=== PATIENT | female | born 1995 | race Hispanic/Latino ===

== ENCOUNTER 2020-01-19 19:34 | Emergency (ER) | payer OTHER ==
--- OUTSIDE RECORDS SUMMARY | 2020-01-19 19:36 | XMS REPORT | Summary of Care ---
:1995 Author Organization [facility] - Health Address [address] [place] [address] Care Team Providers Name Role Phone Pcp, Patient Does Not Have A Primary Care Provider Encounter Details Date Type Department Care Team Description 12/27/2019 Orders Only [facility] Doctor Unassigned, No [address] [facility] [place] [address] [address] [place] [address] Allergies Active Allergy Reactions Severity Noted Date Comments Sulfa (Sulfonamide Antibiotics) Unknown - See comments 01/20/2019 childhood documented as of this encounter (statuses as of 12/27/2019) Medications Medication Sig Dispensed Refills Start Date End Date Status ferrous sulfate 325 Take 1 Tab by 60 Tab 2 04/08/2012 Active mg (65 mg iron) mouth 2 (two) tablet times daily. ialicvzvt-rgyr-eyhoud Take 2 tablets by 0 Active no.183 mouth daily. (SINTRALYNE-PM) 5-20-460 mg Cap Nitrofurantoin&Nit. Take 1 capsule by 14 capsule 0 06/23/2016 Active Macrocryst (MACROBID) mouth 2 (two) 100 mg capsule times daily. ondansetron (ZOFRAN, Take 1 tablet by 12 tablet 0 06/23/2016 Active HYDROCHLORIDE,) 4 mouth every 8 mg tablet (eight) hours as needed for Nausea and Vomiting (N/V). ondansetron (ZOFRAN, Take 1 tablet by 12 tablet 0 06/23/2016 Active HYDROCHLORIDE,) 4 mouth every 8 mg tablet (eight) hours as needed for Nausea and Vomiting (N/V). 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 documented as of this encounter Last Filed Vital Signs Not on filedocumented in this encounter Plan of Treatment Date Type Specialty Care Team Description 12/27/2019 Nurse Visit Pediatric Genetics RayRaciel MD [address] [facility] [address] [place] [address] Arrived Nurse, Yenni Ruvalcaba Genetics Health Maintenance Due Date Last Done Comments VARICELLA VACCINES (1 of 2 - 1996 2-dose childhood series) DTaP,Tdap,and Td Vaccines (1 - 2006 Tdap) HPV VACCINES (1 - Female 2-dose 2006 series) CHLAMYDIA SCREENING 05/24/2013 05/24/2012 PAP SMEAR 2016 INFLUENZA VACCINE (#1) 2019 PNEUMOCOCCAL 0-64 YEARS COMBINED Aged Out No longer eligible based on SERIES patient's age to complete this topic documented as of this encounter Procedures Procedure Name Priority Date/Time Associated Diagnosis Comments ASSIGNMENT OF BENEFITS Routine 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
--- OUTSIDE RECORDS SUMMARY | 2020-01-19 19:36 | XMS REPORT | Summary of Care ---
:1995 Author Organization [facility] - Health Address [address] [place] [address] Care Team Providers Name Role Phone Pcp, Patient Does Not Have A Primary Care Provider Reason for Visit Reason Comments NURSE VISIT bloodwork Encounter Details Date Type Department Care Team Description 12/27/2019 Nurse Visit [facility] Raciel Crandall MD [address] [facility] [address] [place] [address] Family history of genetic disease (Primary Dx); Specialties Yenni Garland Genetics History of seizures [address] [place] [address] Allergies Active Allergy Reactions Severity Noted Date Comments Sulfa (Sulfonamide Antibiotics) Unknown - See comments 01/20/2019 childhood documented as of this encounter (statuses as of 12/27/2019) Medications Medication Sig Dispensed Refills Start Date End Date Status ferrous sulfate 325 Take 1 Tab by 60 Tab 2 04/08/2012 Active mg (65 mg iron) mouth 2 (two) tablet times daily. 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 See clinical note under her on date12/27/2019 from Vania Agrawal.Electronically signed by Vania Agrawal at 4:31 PM Kayden Rodriguez LVN - 12/27/2019 3:30 PM CST24 year old female has been identified by and name. The patient has signed the informed consentto have blood drawn. Venipuncture performed by clean technique on the left anticubitus. Slight pressure and a band aid were applied to the venipuncture site. The patient tolerated the procedure well. The collected blood sample(s) were properly labeled in the exam room in front of the patient/family and sent to the laboratory. Specimen collected and sent to [facility] Financial consent and lab requisition signed by patient's parent. Copy of insurance information sent. Specimen packaged and sent via [employer]. [employer] Tracking Number [id number] signed by Kayden Tidwell LVN at 12/27/2019 3:42 PM CSTdocumented in this encounter Plan of Treatment Name Type Priority Associated Diagnoses Order Schedule Misc. Sendout- Familial LAB Routine Family history of genetic Ordered: mutation analysis - Send disease to [facility] History of seizures Health Maintenance Due Date Last Done Comments [...] this topic documented as of this encounter Results Not on filedocumented in this encounter Visit Diagnoses Diagnosis Family history of genetic disease - Primary Family history of other condition History of seizures Personal history of other disorders of nervous system and sense organs documented in this encounter
--- OUTSIDE RECORDS SUMMARY | 2020-01-19 19:36 | XMS REPORT | Summary of Care ---
:1995 Author Organization [facility] - Health Address [address] [place] [address] Care Team Providers Name Role Phone Pcp, Patient Does Not Have A Primary Care Provider Reason for Visit Reason Comments NURSE VISIT bloodwork Encounter Details Date Type Department Care Team Description 12/27/2019 Nurse Visit [facility] Raciel Crandall MD [address] [facility] [address] [place] [address] Family history of genetic disease (Primary Dx); Specialties Yenni Garland Genetics History of seizures [address] [place] [address] Allergies Active Allergy Reactions Severity Noted Date Comments Sulfa (Sulfonamide Antibiotics) Unknown - See comments 01/20/2019 childhood documented as of this encounter (statuses as of 12/27/2019) Medications Medication Sig Dispensed Refills Start Date End Date Status ferrous sulfate 325 Take 1 Tab by 60 Tab 2 04/08/2012 Active mg (65 mg iron) mouth 2 (two) tablet times daily. 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 Specimen collected and sent to [facility] Financial consent and lab requisition signed by patient's parent. Copy of insurance information sent. Specimen packaged and sent via [employer]. [employer] Tracking Number [id number] signed by Kayden Tidwell LVN at 12/27/2019 3:42 PM CSTdocumented in this encounter Plan of Treatment Name Type Priority Associated Diagnoses Order Schedule Misc. Sendout- Familial LAB Routine Family history of genetic Ordered: mutation analysis - Send disease to [facility] History of seizures Health Maintenance Due Date [...]
--- OUTSIDE RECORDS SUMMARY | 2020-01-19 19:36 | XMS REPORT | Summary of Care ---
:1995 Author Organization [facility] Address [address] [place] [address] Care Team Providers Name Role Phone Pcp, Patient Does Not Have A Primary Care Provider Reason for Visit Reason Comments Lab Results [facility] Encounter Details Date Type Department Care Team Description 01/12/2020 Telephone [facility] Vania Hwang Lab Results ([facility]) Specialties [address] [place] [address] [facility] [address] [place] [address] Allergies Active Allergy Reactions Severity Noted Date Comments Sulfa (Sulfonamide Antibiotics) Unknown - See comments 01/20/2019 childhood documented as of this encounter (statuses as of 01/12/2020) Medications Medication Sig Dispensed Refills Start Date End Date Status ferrous sulfate 325 Take 1 Tab by 60 Tab 2 04/08/2012 Active mg (65 mg iron) mouth 2 (two) tablet times daily. 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 Migraine 07/07/2011 Seizure 07/07/2011 documented as of this encounter (statuses as of 01/12/2020) Social History Tobacco Use Types Packs/Day Years [...] filedocumented in this encounter Plan of Treatment Health Maintenance Due Date Last Done Comments [...] in this encounter Insurance Payer Benefit Plan / Subscriber ID Effective Dates Phone Address Type Group [facility] STAR xxxxxxxxx 2018-Present Medicaid COMM PLAN - PLUS MANAGED MEDICAID [facility] TOTAL VISION [facility] TOTAL [id number] 2016-Presen Vision VISION t documented as of this encounter
--- OUTSIDE RECORDS SUMMARY | 2020-01-19 19:36 | XMS REPORT ---
:1995 Author [facility] Address [address] [place] [address] [address]. [address] [place] [address] Care Team Providers Name Role Phone Unavailable Unavailable Unavailable Payers Payer Name Policy Type Policy Number Effective Date Expiration Date Problems This patient has no known problems. Allergies, Adverse Reactions, Alerts Allergy Name Allergy Status Severity Reaction(s) Onset Inactive Treating Comments Type Date Date Clinician sulfamethoxazol DA Active U 2017-0 e 06-26 00:00: 00 trimethoprim DA Active U 06-26 00:00: 00 Medications This patient has no known medications. Results Test Description Test Time Test Comments Text Results Atomic Results Result Comments [facility] 2018-08-18 RUN DATE: THIRD 17:55:00 08/19/18 [facility] PAGE 1 RUN TIME: 0854 TRIMESTER Specimen Inquiry RUN USER : INTERFACE PATIENT: VINCENT HODGSON LOC: DONNIE U #: [id number] [facility]: Gosia Onofre MD : 95 BED: A DIS: 08/16/18 STATUS: DIS IN TLOC: SPEC #: [id number] RECD: 08/13/18 STATUS: AMBER REMagdaleno # : [id number] MAXIMO: 08/13/18- SUBM DR: Gosia Onofre MD ENTERED: 08/16/18-804 SP TYPE: PLACIII OTHR DR: ORDERED: LEVEL V SURGICA CODES: [id number] - PLACENTA, NOS PROCEDURES: LEVEL V SURGICA (Incomplete) TISSUES: PLACENTA, NOS - PLACENTA CLINICAL HISTORY 22 year old, 39 weeks, G2T1L1, section, oligohydramnios (kr) FINAL DIAGNOSIS Placenta, section: - placenta with third trimester morphology (388 gms), mean placental weight at 39 weeks - 519 gms (placenta is small for dates, less than the 10th percentile for weight at 39 weeks) - delayed villous maturation - focal villous aggregation with acute inflammation, suggestive of early infarct - trivascular umbilical cord and membranes - free of inflammation Tissue code 1 CPT code(s): 76793 pkg/wpd @ 1749 GROSS DESCRIPTION The specimen is received in formalin, labeled with the patient's name and designated "placenta". The specimen consists of a 388 gm, 15 cm in greatest dimension discoid placenta having a 23 cm length and 1.6 cm in diameter eccentrically located trivascular umbilical cord, fritz, thickened membranes, variegated fritz-pink and purple surface with focal subchorionic fibrin deposition and an intact maternal aspect composed of well-formed cotyledons. The placenta parenchyma is pink-red and spongy with focal areas of peripheral fibrosis and calcifications. [place] sections are submitted as A - D.al 08/17/18 @ 0812 CONTINUED ON NEXT PAGE RUN DATE: 08/19/18 [facility] PAGE 2 RUN TIME: 853 Specimen Inquiry RUN USER: INTERFACE SPEC #: [id number] PATIENT: VINCENT HODGSON #[id number] (Continued) MICROSCOPIC DESCRIPTION The placenta is composed of small vascular villi which are larger and more cellular than expected for the given gestational age. Focal villous aggregation is present, associated with acute inflammation and mild acute intervillositis. The trivascular umbilical cord and membranes are free of inflammation. esla/wpjavon 08/18/18 @ 1750 Signed Corina Nielson 08/18/18 1755 END OF REPORT
[2020-01-19] MEDS ORDERED: HYDROCODONE/APAP 5/325 MG TAB ONE (20:07)
--- NOTE | 2020-01-19 20:39 | RAD REPORT ---
EXAM DESCRIPTION: RAD - Hand Right 3 View - 01/19/2020 8:20 pm CLINICAL HISTORY: PAIN COMPARISON: No comparisons FINDINGS: No fracture or dislocation is seen.
--- NOTE | 2020-01-19 20:42 | ER ---
Nurse's Notes [facility] Name: Jess Weinstein Age: 24 yrs Sex: Female : 1995 Arrival Date: 01/19/2020 Time: 19:36 Bed 15 Private MD: Diagnosis: Pain in right hand;Contusion of hand Presentation: 01/19 19:44 Presenting complaint: Patient states: "I smashed my hand between some wood"; States lp1 seat of chair fell down onto right hand; Pain to right 3rd, 4th, and 5th fingers; R wrist ROM intact. Transition of care: patient was not received from another setting of care. Onset of symptoms was January 19, 2020. Risk Assessment: Do you want to hurt yourself or someone else? Patient reports no desire to harm self or others. Initial Sepsis Screen: Does the patient meet any 2 criteria? No. Patient's initial sepsis screen is negative. Does the patient have a suspected source of infection? No. Patient's initial sepsis screen is negative. Care prior to arrival: None. 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 - Coronavirus screen:: The patient has NOT traveled to [place] in the past 14 days. The patient has NOT had contact with known/suspected case of Coronavirus?. - Social history:: Smoking status: Patient denies any tobacco usage or history of. - Ebola Screening: : No symptoms or risks identified at this time. Screenin:47 Abuse screen: Denies threats or abuse. Denies injuries from another. Nutritional lp1 screening: No deficits noted. Tuberculosis screening: No symptoms or risk factors identified. Fall Risk None identified. Assessment: 20:28 General: Appears in no apparent distress. Behavior is calm, cooperative. Pain: rv Complains of pain in right hand. Neuro: Level of Consciousness is awake, alert, obeys commands, Oriented to person, place, time, situation. Cardiovascular: Patient's skin is warm and dry. Respiratory: Airway is patent. Derm: Wound noted right hand Wound is abrsions. Musculoskeletal: Swelling present in right hand. 20:53 Reassessment: KARLA WRAP APPLIED TO RIGHT HAND. rv Vital Signs: 19:45 BP 130 / 61; Pulse 99; Resp 18; Temp 98.2(TE); Pulse Ox 99% on R/A; Weight 81.65 kg lp1 (R); Height 5 ft. 0 in. (152.40 cm); Pain 0/10; 20:53 BP 126 / 60; Pulse 91; Resp 16; Pulse Ox 99% on R/A; rv 20:55 Pain 3/10; rv 19:45 Body Mass Index 35.15 (81.65 kg, 152.40 cm) lp1 ED Course: 19:36 Patient arrived in ED. cl3 19:44 Jovany Samuel MD is Attending Physician. ps1 19:45 Triage completed. lp1 19:45 Arm band placed on left wrist. lp1 19:47 Patient has correct armband on for positive identification. lp1 20:22 Hand Right 3 View XRAY In Process Unspecified. EDMS 20:26 Nilay Mcgee RN is Primary Nurse. rv 20:53 No provider procedures requiring assistance completed. Patient did not have IV access rv during this emergency room visit. Administered Medications: 20:06 Drug: Anita 5 mg-325 mg 1 tabs Route: PO; 20:55 Follow up: Pain 3/10 Adult; Response: No adverse reaction; Marked relief of symptoms; rv Pain is decreased; RASS: Alert and Calm (0) Outcome: 20:42 Discharge ordered by . ps1 20:54 Discharged to home ambulatory. rv 20:54 Condition: good 20:54 Discharge instructions given to patient, Instructed on discharge instructions, follow up and referral plans. medication usage, Demonstrated understanding of instructions, follow-up care, medications, Prescriptions given X 2. 20:55 Patient left the ED. rv Signatures: Dispatcher [employer] EDMS Em Berry RN RN lp1 Lenny Bull Jovany Samuel MD MD ps1 Nilay Mcgee RN RN rv Jonny Baltazar cl3
--- NOTE | 2020-01-19 20:43 | EDPHYS ---
Physician Documentation [facility] Name: Jess Weinstein Age: 24 yrs Sex: Female : 1995 Arrival Date: 01/19/2020 Time: 19:36 Bed 15 Private MD: ED Physician Jovany Samuel HPI: 01/19 19:59 This 24 yrs old Female presents to ER via Ambulatory with complaints of Hand ps1 Injury. 19:59 Patient is left hand dominant, presenting with crush injury to right hand. Patient was ps1 putting away toys in a storage compartment and had a wooden divider slam down on the fingers. Pain rated as severe with associated swelling. Decreased hand movement of 2nd through 4th digits. . 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 - Coronavirus screen:: The patient has NOT traveled to [place] in the past 14 days. The patient has NOT had contact with known/suspected case of Coronavirus?. - Social history:: Smoking status: Patient denies any tobacco usage or history of. - Ebola Screening: : No symptoms or risks identified at this time. ROS: 19:59 Constitutional: Negative for fever, chills, and weight loss, Eyes: Negative for injury, ps1 pain, redness, and discharge, Cardiovascular: Negative for chest pain, palpitations, and edema, Respiratory: Negative for shortness of breath, cough, wheezing, and pleuritic chest pain, Abdomen/GI: Negative for abdominal pain, nausea, vomiting, diarrhea, and constipation, Skin: Negative for injury, rash, and discoloration, Neuro: Negative for headache, weakness, numbness, tingling, and seizure. 19:59 MS/extremity: Positive for injury or acute deformity, pain, swelling, of the dorsal aspect of middle phalanx of right index finger, dorsal aspect of middle phalanx of right middle finger and dorsal aspect of middle phalanx of right ring finger. Exam: 19:59 Constitutional: This is a well developed, well nourished patient who is awake, alert, ps1 and in no acute distress. Head/Face: Normocephalic, atraumatic. Eyes: Pupils equal round and reactive to light, extra-ocular motions intact. Lids and lashes normal. Conjunctiva and sclera are non-icteric and not injected. Chest/axilla: Normal chest wall appearance and motion. Nontender with no deformity. No lesions are appreciated. Cardiovascular: Regular rate and rhythm. No gallops, murmurs, or rubs. Normal PMI, no JVD. No pulse deficits. Respiratory: Lungs have equal breath sounds bilaterally, clear to auscultation and percussion. No rales, rhonchi or wheezes noted. No increased work of breathing, no retractions or nasal flaring. Abdomen/GI: Soft, non-tender, with normal bowel sounds. No distension or tympany. No guarding or rebound. No evidence of tenderness throughout. Skin: Warm, dry with normal turgor. Normal color with no rashes, no lesions, and no evidence of cellulitis. Neuro: Awake and alert, GCS 15, oriented to person, place, time, and situation. Cranial nerves II-XII grossly intact. Sensory grossly intact. 19:59 Musculoskeletal/extremity: Extremities: grossly normal except: noted in the dorsal aspect of middle phalanx of right ring finger and dorsal aspect of middle phalanx of right middle finger and dorsal aspect of middle phalanx of right index finger: contusion, pain, tenderness. Vital Signs: 19:45 BP 130 / 61; Pulse 99; Resp 18; Temp 98.2(TE); Pulse Ox 99% on R/A; Weight 81.65 kg lp1 (R); Height 5 ft. 0 in. (152.40 cm); Pain 0/10; 20:53 BP 126 / 60; Pulse 91; Resp 16; Pulse Ox 99% on R/A; rv 20:55 Pain 3/10; rv 19:45 Body Mass Index 35.15 (81.65 kg, 152.40 cm) lp1 MDM: 20:07 Patient medically screened. ps1 20:42 Differential diagnosis: closed fracture, contusion, abrasion. Data reviewed: vital ps1 signs, nurses notes, radiologic studies, and as a result, I will discharge patient. Counseling: I had a detailed discussion with the patient and/or guardian regarding: the historical points, exam findings, and any diagnostic results supporting the discharge/admit diagnosis, radiology results, to return to the emergency department if symptoms worsen or persist or if there are any questions or concerns that arise at home. ED course: 24 y/o F presenting with right hand pain. XR negative for fx. Pain control given in ED. Home with anaprox an medrol. F/U with Ortho for reassessment. . 01/19 19:59 Order name: Hand Right 3 View XRAY ps1 Administered Medications: 20:06 Drug: Offerman 5 mg-325 mg 1 tabs Route: PO; 20:55 Follow up: Pain 02/06 Adult; Response: No adverse reaction; Marked relief of symptoms; rv Pain is decreased; RASS: Alert and Calm (0) Disposition: 01/19/20 20:42 Discharged to Home. Impression: Pain in right hand, Contusion of hand. - Condition is Stable. - Discharge Instructions: Musculoskeletal Pain. - Prescriptions for Anaprox DS 550 mg Oral Tablet - take 1 tablet by ORAL route every 12 hours As needed; 20 tablet. Medrol (Long) 4 mg Oral Tablets, Dose Pack - take 1 tablet by ORAL route as directed - follow package instructions; 1 packet. - Medication Reconciliation Form, Thank You Letter, Antibiotic Education, Prescription Opioid Use form. - Follow up: Private Physician; When: As needed; Reason: Further diagnostic work-up, Recheck today's complaints, Continuance of care, Re-evaluation by your physician. Follow up: Emergency Department; When: As needed; Reason: Worsening of condition. - Problem is new. - Symptoms have improved. Signatures: Dispatcher [employer] EDMS Em Berry RN RN lp1 Lenny Bull Jovany Samuel MD MD ps1 Nilay Mcgee RN RN rv Corrections: (The following items were deleted from the chart) 20:55 20:42 01/19/2020 20:42 Discharged to Home. Impression: Pain in right hand; Contusion of rv hand. Condition is Stable. Forms are Medication Reconciliation Form, Thank You Letter, Antibiotic Education, Prescription Opioid Use. Follow up: Private Physician; When: As needed; Reason: Further diagnostic work-up, Recheck today's complaints, Continuance of care, Re-evaluation by your physician. Follow up: Emergency Department; When: As needed; Reason: Worsening of condition. Problem is new. Symptoms have improved. ps1
[2020-01-19 22:58] VITALS: TEMP 98.2; O2SAT 99
[2020-01-19 23:15] VITALS: BP 126/60
== END 2020-01-19 20:55 | disposition home or self-care (01) ==
LOC: ER 19:34
DX: S60.221A Contusion of right hand, initial encounter (principal); W22.8XXA Striking against or struck by other objects, initial encounter; Y93.89 Activity, other specified; Y92.9 Unspecified place or not applicable; Z88.2 Allergy status to sulfonamides
CPT/HCPCS: 99283

== ENCOUNTER 2020-07-10 23:22 | Emergency (ER) | payer OTHER ==
--- OUTSIDE RECORDS SUMMARY | 2020-07-10 23:25 | XMS REPORT | Continuity of Care Document ---
:1995 Author Organization [facility] t Address [address] [place] [address] Care Team Providers Name Role Phone Tanja Attending Clinician Unavailable Nurse, Peg Kapadia Attending Clinician Unavailable Payers Payer Name Policy Type Policy Number Effective Date Expiration Date S ource Problems This patient has no known problems. Allergies, Adverse Reactions, Alerts Allergy Allergy Status Severity Reaction(s) Onset Inactive Treating Comm ents Source Name Type Date Date Clinician sulfamet DA Active U 2017-0 [facility] trimetho DA Active U 2017-0 [facility] prim 06-26 [facility] Medications This patient has no known medications. Procedures This patient has no known procedures. Encounters Start End Encounter Admission Attending Care Care Encounter Source Date/Time Date/Time Type Type Clinicians Facility Department ID 2020-01-12 2020-01-12 Telephone GATO Agrawal [id number] 00:00:00 00:00:00 [facility] [id number] [place] [id number] [place] [id number] 2019-12-27 2019-12-27 Nurse NurseYenni [id number] 15:04:30 16:32:19 Visit Pedi [facility] [id number] [facility] [id number] [place] [id number] Results Test Description Test Time Test Comments Results Result [facility] e Comments [facility] 2018-08-18 TRIMESTER 17:55:00 --------RUN DATE: 08/19/18 [facility] PAGE 1 RUN TIME: 08 Specimen Inquiry RUN USER: INTERFACE --------PATIENT: VINCENT WEINSTEIN LOC: DONNIE U #: [id number] AGE/SX: 22/F ROOM: [facility] RE08/13/18REG DR: Gosia Onofre MD : 95 BED: A DIS: 08/16/18 STATUS: DIS IN TLOC: -------- SPEC #: [id number] RECD: 08/13/18-804 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 Rolled Seat Trimmer sections are submitted as A - D.reza/leeann 08/17/18 @ 0815 CONTINUED ON NEXT PAGE --------RUN DATE: 08/19/18 [facility] PAGE 2 RUN TIME: 853 Specimen Inquiry RUN USER: INTERFACE --------SPEC #: [id number] PATIENT: VINCENT WEINSTEIN #[id number] (Continued) MICROSCOPIC DESCRIPTION The placenta is composed of small vascular villi which are larger and more cellular than expected for the given gestational age. Focal villous aggregation is present, associated with acute inflammation and mild acute intervillositis. The trivascular umbilical cord and membranes are free of inflammation. elsa/mejia 08/18/18 @ 1750 Signed Corina Nielson 08/18/18 1755 -------- END OF REPORT
[2020-07-11] MEDS ORDERED: ACETAMINOPHEN 500 MG TAB ONE (00:14)
[2020-07-11] MEDS ORDERED: IBUPROFEN 400 MG TAB ONE (00:14)
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
[2020-07-11 00:47] VITALS: BP 121/72; TEMP 98.9; O2SAT 100
[2020-07-11 02:43] LABS: Urine Blood TRACE (NEG); Urine Glucose NEGATIVE (NEG); Urine Protein 1+ (NEG); Urine Specific Gravity >1.030 (1.005-1.030)
--- NOTE | 2020-07-11 07:34 | RAD REPORT ---
EXAM DESCRIPTION: RAD - Humerus Left - 07/11/2020 12:17 am CLINICAL HISTORY: Trauma, left arm pain COMPARISON: None. FINDINGS: No fracture is identified. There is no dislocation or periosteal reaction noted. No forei gn body or other soft tissue abnormality. The patient's implanted control device is normal in positioning. IMPRESSION: Negative left humerus examination.
--- NOTE | 2020-07-11 07:34 | RAD REPORT ---
EXAM DESCRIPTION: RAD - Clavicle Left - 07/11/2020 12:17 am CLINICAL HISTORY: Trauma, shoulder pain COMPARISON: None. FINDINGS: No fracture is identified and AC joint or SC joint dislocation. No suspicious finding in the visualized upper chest. IMPRESSION: Negative left clavicle examination.
== END 2020-07-11 00:38 | disposition home or self-care (01) ==
LOC: ER 23:22
DX: S16.1XXA Strain of muscle, fascia and tendon at neck level, initial encounter (principal); Z04.71 Encounter for examination and observation following alleged adult physical abuse; Z88.2 Allergy status to sulfonamides
CPT/HCPCS: 81003; 99284

== ENCOUNTER 2024-09-03 15:51 | Emergency (ER) | payer OTHER ==
[2024-09-03] MEDS ORDERED: NA CHLORIDE 0.9% 1,000 ML ONE (16:10)
[2024-09-03] MEDS ORDERED: METOCLOPRAMIDE 10 MG/2mL INJ ONE (16:29)
[2024-09-03 16:34] LABS: Absolute Basophils 0.1 K/uL (0-0.5); Absolute Eosinophils 0.1 K/uL (0-0.5); Absolute Lymphocytes (CBC) 1.7 K/uL (0.7-4.9); Absolute Monocytes 0.5 K/uL (0.1-1.3); Basophils % 0.5 % (0-1.3); Eosinophils % 0.5 % (0-4.4); Hematocrit 38.5 % (36.0-45.0); Hemoglobin 12.7 g/dL (12.0-15.0); Lymphocytes % 15.3 % (15.3-44.8); MCH 28.6 pg (27.0-35.0); MCHC 32.9 g/dL (32.0-36.0); MCV 86.8 fL (80-100); MPV 9.4 fL (7.6-11.3); Monocytes % 4.6 % (3.3-12.3); Neutrophils % 79.1 % (41.7-73.7); Platelets 299 thou/uL (152-406); RBC Red Blood Cell Count 4.44 M/uL (3.86-4.86); Red Cell Distribution Width 13.3 % (12.1-15.2)
[2024-09-03 16:46] LABS: Urine Bacteria <20 /HPF (<20); Urine Micro Reflex YN NO BILL MICROSCOPIC; Urine Mucus 4+ /HPF (None Seen); Urine RBC <5 /HPF (None Seen); Urine WBC <5 /HPF (<5); Urine WBC Clump Rare /HPF (None Seen)
[2024-09-03 16:48] LABS: Specific Gravity > 1.030 (1.005-1.030); Urine Bilirubin NEGATIVE (Negative); Urine Blood Negative (Negative); Urine Clarity Extremely Turbid (Clear); Urine Color Yellow (Yellow); Urine Glucose NEGATIVE (Negative); Urine Ketones TRACE (Negative); Urine Nitrite NEGATIVE (Negative); Urine Protein 1+ (Negative); Urine Urobilinogen 1+ (Normal)
--- NOTE | 2024-09-03 16:53 | RAD REPORT ---
EXAM: OB Limited HISTORY: NAUSEA/VOMITING COMPARISON: None TECHNIQUE: Multiple grayscale and color Doppler images were obtained in a transabdominal pelvic ultra sound. Spectral analysis of the Doppler waveforms of the ovaries were performed. FINDINGS: UTERUS: Single fetus identified. The fetus is in breech position. Anterior placenta. Femur length is 2.1 cm which is consistent with 16 week 1 day. A heart rate is detected at 141 bpm. No evidence of subchorionic hemorrhage. No free fluid is seen in the pelvis. RIGHT OVARY: Normal flow without abnormal mass. LEFT OVARY: Nonvisualized. IMPRESSION: Single live intrauterine with estimated age of 16 week 1 day.
[2024-09-03 17:05] LABS: Albumin 2.9 g/dL (3.4-5.0); Albumin/Globulin Ratio 0.7 (1.1-1.8); Alkaline Phosphatase 83 U/L (45-117); BUN Blood Urea Nitrogen 7 mg/dL (7-18); Bicarbonate 22 mEq/L (21-32); Bilirubin Total 0.3 mg/dL (0.2-1.0); Globulin 3.9 g/dL (2.3-3.5); Glomerular Filtration Rate 127 ml/min (=/>90); Glucose Level 133 mg/dL (74-106); Protein, Total 6.8 g/dL (6.4-8.2); Sodium Level 137 mEq/L (136-145)
[2024-09-03 17:06] LABS: ALT/SGPT < 14 U/L (13-56); AST/SGOT < 10 U/L (15-37)
[2024-09-03 17:19] LABS: HCG, Quantitative 25478 mIU/mL (1-3)
[2024-09-03] MEDS ORDERED: POTASSIUM CL SA 10 MEQ TAB PO ONE (17:27)
--- NOTE | 2024-09-03 17:33 | EDPHYS ---
Physician Documentation [facility] Name: Jess Weinstein Age: 29 yrs Sex: Female : 1995 Arrival Date: 09/03/2024 Time: 15:51 Bed 6 Private MD: ED Physician Conner Rizzo HPI: 09/03 16:26 This 29 yrs old Female presents to ER via Ambulatory with complaints of dr5 Nausea/Vomiting/Diarrhea, Dizziness, 15 weeks . 16:26 The patient presents to the emergency department with nausea, that is mild. Possible dr5 causes: . Pt presents with nausea / vomiting since she became . Pt is A1. Pt reports she had [employer] for lunch today and vomited what she ate. Pt denies lightheadedness, dizziness, diarrhea. She states she had a prescription for Diclegis, but isn't able to afford it due to insurance reasons.. 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 - Infectious Disease History:: Denies. - Social history:: Smoking status: . ROS: 16:26 Constitutional: as per hpi dr5 Exam: 16:26 Constitutional: This is a well developed, well nourished patient who is awake, alert, dr5 and in no acute distress. Head/Face: Normocephalic, atraumatic. Eyes: Pupils equal round and reactive to light, extra-ocular motions intact. Lids and lashes normal. Conjunctiva and sclera are non-icteric and not injected. Cornea within normal limits. Periorbital areas with no swelling, redness, or edema. Chest/axilla: Normal chest wall appearance and motion. Nontender with no deformity. No lesions are appreciated. Cardiovascular: Regular rate and rhythm with a normal S1 and S2. Normal PMI, no JVD. No pulse deficits. Respiratory: Lungs have equal breath sounds bilaterally, clear to auscultation. No rales, rhonchi or wheezes noted. No increased work of breathing, no retractions or nasal flaring. Abdomen/GI: Soft, non-tender in all quadrants. No tenderness to palpation. 16:26 MS/ Extremity: Pulses equal, no cyanosis. Neurovascular intact. Full, normal range of motion. Neuro: Awake and alert, GCS 15, oriented to person, place, time, and situation. Cranial nerves II-XII grossly intact. Motor strength 5/5 in all extremities. Sensory grossly intact. Cerebellar exam normal. Normal gait. Vital Signs: 15:58 BP 139 / 79; Pulse 98; Resp 16; Temp 97.4(O); Pulse Ox 100% on R/A; Weight 77.56 kg; iw Height 5 ft. 0 in. ; Pain 0/10; 17:36 BP 115 / 59; Pulse 86; Resp 15; Pulse Ox 100% ; ko1 15:58 Body Mass Index 33.39 (77.56 kg, 152.4 cm) iw 15:58 Pain Scale: Adult iw MDM: 16:00 Patient medically screened. dr5 17:33 Differential diagnosis: gastroenteritis, Dehydration, Hypokalemia, Intractable dr5 Vomiting. Data reviewed: vital signs, nurses notes. 17:34 Consideration of Admission/Observation Escalation of care including dr5 admission/observation considered. Considered admission if patient wasn't able to keep fluids down. I considered the following discharge prescriptions or medication management in the emergency department Medications were administered in the Emergency Department. See MAR. Care significantly affected by the following chronic conditions: Anemia, Asthma. Care significantly affected by the following Social Determinants of Health: Poor access to healthcare and/or lack of insurance, Poor access to transportation. Counseling: I had a detailed discussion with the patient and/or guardian regarding the historical points, exam findings, and any diagnostic results supporting the discharge/admit diagnosis, the presence of at least one elevated blood pressure reading (>120/80) during this emergency department visit, lab results, radiology results, the need for outpatient follow up, for definitive care, a family practitioner, an OB/Gyne specialist, to return to the emergency department if symptoms worsen or persist or if there are any questions or concerns that arise at home. Medication response: Reglan. Response to treatment: the patient's symptoms have markedly improved after treatment. 17:36 ED course: Gave patient Diclegis information for over the counter doxylamine and dr5 pyridoxine given patient is having problems filling Diclegis prescription. US results and lab results printed and given to patient. Pt is feeling much better. Will have her continue following up with OB as needed. All questions answered.. 09/03 16:06 Order name: Abo/rh Typing dr5 09/03 16:06 Order name: CBC with Diff; Complete Time: 16:41 dr5 09/03 16:06 Order name: HCG-Quantitative; Complete Time: 17:25 dr5 09/03 16:06 Order name: CMP; Complete Time: 17:25 dr5 09/03 16:11 Order name: Urinalysis W/Microscopic; Complete Time: 16:50 dr5 09/03 16:07 Order name: US OB Limited; Complete Time: 16:54 dr5 09/03 16:06 Order name: IV Saline Lock; Complete Time: 16:30 dr5 09/03 16:06 Order name: Labs collected and sent; Complete Time: 16:30 dr5 09/03 16:06 Order name: NPO; Complete Time: 16:07 dr5 Administered Medications: 16:30 Drug: NS 0.9% IV 1000 ml IV at 1000 ml once Route: IV; Rate: 1000 ml; Site: right ko1 antecubital; 17:29 Follow up: Response: No adverse reaction; IV Status: Completed infusion; IV Intake: ko1 1000ml 16:30 Drug: metoCLOPramide IVP 5 mg IVP once; over 1 to 2 minutes Route: IVP; Site: right ko1 antecubital; 16:45 Follow up: Response: No adverse reaction ko1 17:28 Drug: Potassium Chloride PO 40 mEq PO once Route: PO; ko1 17:43 Follow up: Response: No adverse reaction; Medication administered at discharge. ko1 Disposition: 18:08 Co-signature as Attending Physician, Conner Rizzo MD I reviewed the patient's care rt provided by the Advanced Practice Provider and agree with the diagnosis and treatment plan. Disposition Summary: 09/03/24 17:33 Discharge Ordered Notes: Location: Home dr5 Condition: Stable dr5 Diagnosis - Nausea with vomiting, unspecified dr5 - 16 weeks gestation of dr5 Followup: dr5 - With: Emergency Department - When: As needed - Reason: Worsening of condition Followup: dr5 - With: Private Physician - When: 2 - 3 days - Reason: Recheck today's complaints, Continuance of care, Re-evaluation by your physician Discharge Instructions: - Discharge Summary Sheet dr5 - and Urinary Tract Infection dr5 - Second Trimester of , Prrd-sq-Ecah dr5 Forms: - Medication Reconciliation Form dr5 - Antibiotic Education dr5 - Patient Portal Instructions dr5 - Leadership Thank You Letter dr5 Prescriptions: - Cephalexin 500 mg Oral capsule - take 1 capsule ORAL route every 12 hours for 7 days; 14 capsule; Refills: 0, dr5 Product Selection Permitted Signatures: Dispatcher [employer] Narcisa Overton, RN RN iw Aleisha Gaona RN RN ko1 Conner Rizzo MD MD rt Gideon Carrasco, SENIOR PRICING ANALYST-C SENIOR PRICING ANALYST-Cdr5 Corrections: (The following items were deleted from the chart) 16:30 16:26 Pt presents with nausea / vomiting since she became . Pt is A1. . dr5 dr5
--- NOTE | 2024-09-03 17:33 | ER ---
Nurse's Notes [facility] Name: Jess Weinstein Age: 29 yrs Sex: Female : 1995 Arrival Date: 09/03/2024 Time: 15:51 Bed 6 Private MD: Diagnosis: Nausea with vomiting, unspecified;16 weeks gestation of Presentation: 09/03 15:58 Chief complaint: Patient states: unable to keep anything down since being , is iw 15 weeks and 5 days , feeling light headed like she is going to pass out, it comes and goes. Coronavirus screen: At this time, the client does not indicate any symptoms associated with coronavirus-19. Ebola Screen: No symptoms or risks identified at this time. Initial Sepsis Screen: Does the patient meet any 2 criteria? No. Patient's initial sepsis screen is negative. Does the patient have a suspected source of infection? No. Patient's initial sepsis screen is negative. Risk Assessment: Do you want to hurt yourself or someone else? Patient reports no desire to harm self or others. 15:58 Method Of Arrival: Ambulatory iw 15:58 Acuity: CARISSA 3 iw 17:40 Onset of symptoms is unknown. ko1 Triage Assessment: 17:40 General: Appears in no apparent distress. Behavior is calm, cooperative, appropriate ko1 for age. GI: Reports diarrhea, nausea, vomiting. PRESS SET UP PERSON: 16:00 4, Living 2, LMP 05/16/2024, unknown iw Historical: - Allergies: 16:00 Sulfa (Sulfonamide Antibiotics); iw - Home Meds: 16:00 None [Active]; iw - PMHx: 16:00 Anemia; Asthma; Seizures; Anxiety; iw - PSHx: 16:00 section; left wrist; Lumpectomy of breast; iw - Immunization history:: Adult Immunizations up to date. - Infectious Disease History:: Denies. - Social history:: Smoking status: . Screenin:[facility] ED Fall Risk Assessment (Adult) History of falling in the last 3 months, ko1 including since admission No falls in past 3 months (0 pts) Confusion or Disorientation No (0 pts) Intoxicated or Sedated No (0 pts) Impaired Gait No (0 pts) Mobility Assist Device Used No (0 pt) Altered Elimination No (0 pt) Score/Fall Risk Level 0 - 2 = Low Risk Oriented to surroundings, Maintained a safe environment, Educated pt \T\ family on fall prevention, incl call for assistance when getting out of bed, Assessed \T\ reinforced patient's understanding of fall precautions, Hourly rounding (assess needs \T\ fall precautionary measures) done. Abuse screen: Denies threats or abuse. Denies injuries from another. Nutritional screening: No deficits noted. Tuberculosis screening: No symptoms or risk factors identified. Assessment: 16:33 Pain: Denies pain. GI: Abdomen is round Reports diarrhea, nausea, vomiting. ko1 Vital Signs: 15:58 BP 139 / 79; Pulse 98; Resp 16; Temp 97.4(O); Pulse Ox 100% on R/A; Weight 77.56 kg; iw Height 5 ft. 0 in. ; Pain 0/10; 17:36 BP 115 / 59; Pulse 86; Resp 15; Pulse Ox 100% ; ko1 15:58 Body Mass Index 33.39 (77.56 kg, 152.4 cm) iw 15:58 Pain Scale: Adult iw ED Course: 15:56 Patient arrived in ED. im 16:00 Triage completed. iw 16:00 Gideon Carrasco FNP-C is PHCP. dr5 16:00 Conner Rizzo MD is Attending Physician. dr5 16:00 Arm band placed on. iw 16:27 Nj Garcia, RN is Primary Nurse. jl7 16:30 Aleisha Gaona, YADIEL is Primary Nurse. ko1 16:30 Urinalysis W/Microscopic Sent. ko1 16:30 CMP Sent. ko1 16:30 HCG-Quantitative Sent. ko1 16:30 Abo/rh Typing Sent. ko1 16:30 CBC with Diff Sent. ko1 16:33 Patient has correct armband on for positive identification. Allergy band placed. Bed in ko1 low position. Call light in reach. Side rails up X 1. Provided Education on: labs, call light, and tests. Pulse ox on. NIBP on. Door closed. Noise minimized. Lights dimmed. Warm blanket given. Pillow given. Assisted to bathroom. 16:33 No provider procedures requiring assistance completed. Initial lab(s) drawn, by va, obdulio sent to lab. Urine collected: clean catch specimen, clear. Inserted saline lock: 22 gauge in right antecubital area, using aseptic technique. Blood collected. Flushed with 10 mL NS. 16:44 US OB Limited In Process Unspecified. EDMS 16:50 Assisted to bathroom. ko1 17:25 Warm blanket given. Assisted to bathroom. ko1 17:36 IV discontinued, intact, bleeding controlled, No redness/swelling at site. Pressure ko1 dressing applied. Administered Medications: 16:30 Drug: NS 0.9% IV 1000 ml IV at 1000 ml once Route: IV; Rate: 1000 ml; Site: right ko1 antecubital; 17:29 Follow up: Response: No adverse reaction; IV Status: Completed infusion; IV Intake: ko1 1000ml 16:30 Drug: metoCLOPramide IVP 5 mg IVP once; over 1 to 2 minutes Route: IVP; Site: right ko1 antecubital; 16:45 Follow up: Response: No adverse reaction ko1 17:28 Drug: Potassium Chloride PO 40 mEq PO once Route: PO; ko1 17:43 Follow up: Response: No adverse reaction; Medication administered at discharge. ko1 Medication: 16:33 VIS not applicable for this client. ko1 Intake: 17:29 IV: 1000ml; Total: 1000ml. ko1 Outcome: 17:33 Discharge ordered by MD. dr5 17:39 Discharged to home ambulatory, with family, ko1 17:39 Condition: stable 17:39 Discharge instructions given to patient, family, Instructed on discharge instructions, follow up and referral plans. Demonstrated understanding of instructions, follow-up care, medications, Prescriptions given X 1, 17:43 Patient left the ED. ko1 Signatures: Dispatcher [employer] EDMS Narcisa Hoff RN RN iw Leal, Jahala, RN RN jl7 Aleisha Gaona RN RN ko1 Shellie Christensen Dustin, MAP MAKER-C MAP [id number]-[id number] Corrections: (The following items were deleted from the chart) 16:06 15:58 BP 139 / 79; Pulse 98bpm; Resp 16bpm; Pulse Ox 100% RA; 77.56 kg; Height 5 ft. 0 iw in.; BMI: 33.4; Pain 0/10, Adult; iw
[2024-09-03 17:50] VITALS: TEMP 97.4; O2SAT 100
[2024-09-03 17:51] VITALS: BP 115/59
== END 2024-09-03 17:43 | disposition home or self-care (01) ==
LOC: ER 15:51
DX: O26.892 Other specified pregnancy related conditions, second trimester (principal); R11.2 Nausea with vomiting, unspecified; Z3A.16 16 weeks gestation of pregnancy
CPT/HCPCS: 96361; 85025; 81001; 36415; 86900; 86901; 84702; 80053; 76815; 96374; 99284; J2765; J7030